=== PATIENT | male | born 1995 | race Caucasian/White ===

== ENCOUNTER → 2019-12-04 08:29 | Outpatient (REF) | payer OTHER, SELFPAY ==
--- NOTE | 2019-12-04 08:30 | CA_ITS ---
Transthoracic Echocardiogram Patient (Last, First, Middle): Molina Rubalcava, Gender: Male Date of : 1995 Age: 24 Procedure Date: 12/04/2019 Procedure Type: Transthoracic Echocardiogram Location: OP Height: 182.88 cm Weight: 81.65 kg BSA: 2.04 m2 Heart Rate: bpm BP: 120 / 78 mmHg Export Freight Clerk: JUSTIN Referring MD: Lionel Doll MD Symptoms: 145.10 RBB ( right bundle branch block) Conclusions: - Normal study. Findings Left Ventricle Normal left ventricular size, thickness, systolic function, and wall motion. The visually estimated ejection fraction is between 55-60%. Diastolic function is normal for age. Right Ventricle Normal right ventricular cavity size and systolic function. Atria Both atria are normal in size. There is no evidence of interatrial shunt by color Doppler. Aortic Valve Normal aortic valve structure and function. There is no aortic valve stenosis. There is no aortic valve regurgitation. Mitral Valve Normal mitral valve structure and function. There is no mitral valve regurgitation. There is no mitral valve stenosis. Pulmonic Valve Normal pulmonic valve structure and function. There is trace pulmonic valve regurgitation. Tricuspid Valve Normal tricuspid valve structure and function. There is trace tricuspid valve regurgitation. Normal right atrial pressure. There is no evidence of pulmonary hypertension. Great Vessels All visible segments of the aorta are normal in size. The visualized portions of the pulmonary artery and branches are normal. Venous The inferior vena cava is normal in size and collapses greater than 50% with inspiration. Pericardium/Pleural There is no evidence of pericardial effusion. Prior Study Comparison No change compared to prior study dated: 11/11/2018. Measurements 2D Linear Measurements IVSd: 0.91 0.6-0.9/0.6-1.0 cm LVIDd: 5.03 3.9-5.3/4.2-5.9 cm LVIDs: 3.40 2.0-3.6 cm LVPWd: 0.73 0.7-1.1 cm Ao Root: 2.70 2.1-3.5 cm LV Mass: 175.67 67-162/88-224 g LVOT Diam: 2.01 3.0+(-)1.3 cm Mitral Valve MV Pk E: 0.57 MV PK A: 0.37 MV Decel Time: 243.70 E/A: 1.55 E'Lateral: 0.15 E'Medial: 0.10 Decel [place]: 2.34 Aortic Valve AoV Pk Armen: 1.24 AoV Pk Grad: 6.11 LVOT LVOT Pk Armen: 0.95 LVOT Mn Armen: 0.61 LVOT VTI: 0.19 LVOT Pk Grad: 3.62 LVOT Mn Grad: 1.77 LVOT Diam: 2.01 LVOT Area: 3.19 Diastolic Function MV Pk E: 0.57 MV Pk A: 0.37 E/A: 1.55 E'Medial: 0.10 E' Laterial: 0.15 Tricuspid Valve TR Pk Armen: 2.35 TR Pk Grad: 22.09 RA Press: 3.00 RVSP: 25.00 Great Vessels Aorta Ao Root-2D: 2.70 2.0-3.7 cm Ao Asc: 2.56 2.1-3.4 cm Updated in Other Vendor System with Status of Final Jose Luis Kovacs MD electronically signed on 12/05/2019 11:50:08 AM with status of Final
== END ==
LOC: HO.CARD 08:29
PROVIDERS: PCP Nurse Practitioner Family; Visit Provider Internal Medicine
DX: I45.10 Unspecified right bundle-branch block (principal)
CPT/HCPCS: 93306

== ENCOUNTER → 2019-12-11 12:26 | Outpatient (BNVA) | payer OTHER, SELFPAY | PROVIDERS: PCP Nurse Practitioner Family; Referring Provider Nurse Practitioner Family; Visit Provider Internal Medicine | DX: I45.10 Unspecified right bundle-branch block (principal); R94.31 Abnormal electrocardiogram [ECG] [EKG] | CPT/HCPCS: 93005; 99214 ==

== ENCOUNTER → 2021-10-27 07:19 | Outpatient (REF) | payer OTHER, SELFPAY ==
--- NOTE | 2021-10-27 07:23 | CA_ITS ---
Transthoracic Echocardiogram Patient (Last, First, Middle): Molina Rubalcava, Gender: Male Date of : 1995 Age: 26 Procedure Date: 10/27/2021 Procedure Type: Transthoracic Echocardiogram Location: OP Height: 182.88 cm Weight: 79.38 kg BSA: 2.01 m2 Heart Rate: 57 bpm BP: 120 / 75 mmHg Carder Blankets: KYLIE Stevens MD: Lionel Doll MD Division Traffic Superintendent: Dimitri Robles MD Symptoms: R94.31 - Abnormal electrocardiogram [ECG] [EKG] Study Quality: Adequate ECG Rhythm: Bradycardia Conclusions: - Essentially normal study except for mild enlargement of right ventricle which could be due to off axis views Findings Left Ventricle Normal left ventricular size, thickness, and systolic function. The visually estimated ejection fraction is between 55-60%. Diastolic function is normal for age. Right Ventricle Mildly increased right ventricular cavity size. There is normal right ventricular systolic function. Atria Both atria are normal in size. Interatrial shunt cannot be excluded. Aortic Valve Normal aortic valve structure and function. There is no aortic valve stenosis. There is no aortic valve regurgitation. Mitral Valve Normal mitral valve structure and function. There is trace mitral valve regurgitation. There is no mitral valve stenosis. Pulmonic Valve The pulmonic valve is likely normal. There is trace pulmonic valve regurgitation. Tricuspid Valve Normal tricuspid valve structure. There is trace tricuspid valve regurgitation. The right ventricular systolic pressure is normal. The right ventricular systolic pressure is 26 mmHg. Normal right atrial pressure. There is no evidence of pulmonary hypertension. Great Vessels All visible segments of the aorta are normal in size. The pulmonary artery was not well visualized. Venous The inferior vena cava is normal in size and collapses greater than 50% with inspiration. Pericardium/Pleural There is no evidence of pericardial effusion. Prior Study Comparison No significant change compared to prior study dated: 12/04/2019. Measurements 2D Linear Measurements IVSd: 0.74 0.6-0.9/0.6-1.0 cm LVIDd: 5.30 3.9-5.3/4.2-5.9 cm LVIDd Index: 2.64 2.4-3.2/2.2-3.1 cm/m2 LVIDs: 3.82 2.0-3.6 cm LVPWd: 0.69 0.7-1.1 cm LA Diam: 3.30 2.7-3.8/3.0-4.0 cm LAIDs Index: 1.64 1.5-2.3 cm/m2 LV Mass: 161.62 67-162/88-224 g LV Mass Index: 80.41 43-95/49-115 g/m2 LVOT Diam: 2.00 3.0+(-)1.3 cm 2D Systolic Function EF 4C: 49.80 >55% EF 2C: 52.70 >55% Mitral Valve MV Pk E: 0.77 MV PK A: 0.64 MV Decel Time: 153.00 E/A: 1.20 E'Lateral: 16.50 E'Medial: 12.20 E/E' Med: 6.30 E/E' Lat: 4.60 PHT: 45.00 MVA PHT: 4.89 Decel [place]: 5.01 Aortic Valve AoV Pk Armen: 1.23 AoV Mn Armen: 0.87 AoV VTI: 0.27 AoV Pk Grad: 6.00 Aov Mn Grad: 3.00 MELINDA Cont.VTI: 2.51 LVOT LVOT Pk Armen: 1.01 LVOT Mn Armen: 0.72 LVOT VTI: 0.22 LVOT Pk Grad: 4.00 LVOT Mn Grad: 2.00 LVOT Diam: 2.00 LVOT Area: 3.14 Diastolic Function MV Pk E: 0.77 MV Pk A: 0.64 E/A: 1.20 E'Medial: 12.20 E/E' Med: 6.30 E' Laterial: 16.50 E/E' Lat: 4.60 Right Ventricle TAPSE (mm): 22.60 TVS' Armen: 11.40 Tricuspid Valve TR Pk Armen: 2.40 TR Pk Grad: 23.00 RA Press: 3.00 RVSP: 26.00 Great Vessels Aorta Sinus of Valsalva: 2.90 2.0-3.5 cm Ao Asc: 2.60 2.1-3.4 cm Pulmonary Valve PV Pk Armen: 0.86 Peak PV Grad: 3.00 Updated in Other Vendor System with Status of Final Dimitri Robles MD electronically signed on 10/27/2021 12:51:46 PM with status of Final
== END ==
LOC: HO.CARD 07:19
PROVIDERS: Visit Provider Internal Medicine
DX: I45.10 Unspecified right bundle-branch block (principal); R94.31 Abnormal electrocardiogram [ECG] [EKG]
CPT/HCPCS: 93306

== ENCOUNTER → 2021-12-01 08:41 | Outpatient (BNVA) | payer OTHER, SELFPAY | PROVIDERS: PCP Nurse Practitioner Family; Referring Provider Nurse Practitioner Family; Visit Provider Internal Medicine | DX: I45.10 Unspecified right bundle-branch block (principal); I51.7 Cardiomegaly | CPT/HCPCS: 93005; 99212 ==

== ENCOUNTER 2022-03-03 14:33 | Outpatient (REF) | payer OTHER, SELFPAY ==
[2022-03-03 16:02] LABS: Anion Gap 16 (12-20); Blood Urea Nitrogen 17 mg/dL (9-16); Carbon Dioxide 26 mmol/L (22-29); Chloride 101 mmol/L (96-108); Estimated Glomerular Filt Rate > 60; Glucose Random 76 mg/dL (60-115); Potassium 4.2 mmol/L (3.3-5.1); Sodium 139 mmol/L (135-145)
== END 2022-03-03 14:34 | disposition home or self-care (01) ==
LOC: HO.LAB 14:33
PROVIDERS: PCP Nurse Practitioner Family; Visit Provider Internal Medicine
DX: Z01.812 Encounter for preprocedural laboratory examination (principal)
CPT/HCPCS: 36415; 80048

== ENCOUNTER 2023-06-23 10:19 | Outpatient (AMB) | payer OTHER, SELFPAY ==
--- NOTE | 2023-06-23 10:33 | A.OFFPC_ITS ---
Vital Signs 06/23/23 10:37 Height 6 ft Weight 177 lb BMI 24.0 BP 110/80 Blood Pressure Location Rt brachial Position Sitting Pulse 68 Pulse Source Pulse Oximeter Pulse Oximetry (%) 100 Oxygen Delivery Method Room Air Intake Visit Reasons: Physical exam Intake Note: Patient here for physical exam. Allergies No Known Allergies [No Known Allergies*] Allergy (Verified 06/23/23 10:38) Medication List - Last Reconciled 06/23/23 by PATEL Chance sertraline 25 mg PO DAILY Tobacco use date assessed: 06/23/23 Dental Screening Dental Screen Date: 06/23/23 Did you have a dental visit in the last 12 months?: No Did you have a dental problem in the last 6 months where you did not have access to dental care?: No Was dental information given to patient?: Patient has dentist HPI Physical exam HPI Details Pt is here for a PE. Will order labs. [facility] Medical History Abnormal EKG Right bundle branch block Surgical History No pertinent past surgical history Family History Father No problems noted. Mother No problems noted. Social History Housing: House Patient Tobacco Use Status: Never used Tobacco e-Cigarette/Vaping Use: Never Used service: No Current occupational status: employed Cognitive needs: No Hearing needs: No Vision needs: Yes Questionnaire PHQ-9 Over the last 2 weeks, how often have you been bothered by any of the following problems? 1. Little interest or pleasure in doing things: not at all 2. Feeling down, depressed, or hopeless: not at all 3. Trouble falling or staying asleep, or sleeping too much: not at all 4. Feeling tired or having little energy: not at all 5. Poor appetite or overeating: not at all 6. Feeling bad about yourself - or that you are a failure or have let yourself or your family down: not at all 7. Trouble concentrating on things, such as reading the newspaper or watching television: not at all 8. Moving or speaking so slowly that other people could have noticed. Or the opposite - being so fidgety or restless that you have been moving around a lot more than usual: not at all 9. Thoughts that you would be better off or of hurting yourself in some way: not at all Total score: 0 Depression Screening Interpretation: Negative Depression Screening Done: Yes 08146 - PHQ-9 Billing: Yes Source: Developed by Drs. Jerrell Ramirez, Aracelis Sierra, Good Gipson and colleagues, with an educational brad from [employer]. Thrive Questionnaire Date Thrive assessed: 06/23/23 I am a: Patient What is your living situation today?: I have a steady place to live Within the past 12 months, did the food you bought not last and you didn't have the money to get more?: Never true Within the past 12 months, did you worry whether your food would run out before you got money to buy more?: Never true Do you have trouble paying for medicines?: No Do you have trouble getting transportation to medical appointments?: No Do you have trouble paying your heating and electricity bill?: No Do you have trouble taking care of your child, family member or friend?: No Do you have trouble with day-to-day activities such as bathing, preparing meals, shopping, managing finances, etc.?: No Are you currently unemployed and looking for a job?: No Are you interested in more education?: No Currently or been in a relationship where the following occur: I choose not to answer this question THRIVE Score: 0 AUDIT C Alcohol Use Questionnaire (AUDIT-C) 1. How often do you have a drink containing alcohol?: 2-3 times a week 2. How many drinks containing alcohol do you have on a typical day when you are drinking?: 1 or 2 3. How often do you have six or more drinks on one occasion?: Never Total Score: 3 Score Reviewed/Action Taken: No KERRY-7 AMB Questionnaire KERRY-7 Date KERRY - 7 assessed: 06/23/23 Feeling nervous, anxious, or on edge: 0 = Not at all Not being able to stop or control worryin = Not at all Worrying too much about different things: 0 = Not at all Trouble relaxin = Not at all Being so restless that it is hard to sit still: 0 = Not at all Becoming easily annoyed or irritable: 0 = Not at all Feeling afraid as if something awful might happen: 0 = Not at all Total KERRY-7 score (0-4 normal; 5-9 mild; 10-14 moderate; 15-21 severe): 0 Source: Developed by Drs. Jerrell Ramirez, Aracelis Sierra, Good Gipson and colleagues, with an educational brad from [employer]. KERRY-7 Assessment Billing KERRY-7 Assessment Tool: KERRY-7 Assessment 99613 Review of Systems Const Denies chills and Denies fever(s) Eyes Denies blurry vision ENT Denies vertigo, Denies dizziness and Denies sore throat Card Denies chest pain at rest, Denies chest pain with activity, Denies diaphoresis, Denies dyspnea and Denies dyspnea on exertion Resp Denies cough, Denies dyspnea, Denies dyspnea on exertion and Denies wheezing GI Denies abdominal pain, Denies melena, Denies hematochezia, Denies constipation, Denies diarrhea and Denies loose stools Denies hematuria Musc Denies numbness and Denies tingling Skin/Breast Denies lesions Neuro Denies vertigo, Denies dizziness, Denies numbness and Denies tingling Psych Denies anxiety, Denies depression, Denies homicidal ideation, Denies suicidal ideation and Denies other (substance abuse) Aller/Immun Denies wheezing Physical exam (Primary Care) Vital Signs: Last Vital Signs Pulse 68 06/23/23 10:37 BP 110/80 06/23/23 10:37 Pulse Ox 100 06/23/23 10:37 Oxygen Delivery Method Room Air 06/23/23 10:37 BMI result Body Mass Index 24.0 Tobacco/Smoking Status: Tobacco use Status Tobacco use date assessed 06/23/23 06/23/23 10:42 Patient Tobacco Use Status Never used Tobacco 06/23/23 10:34 e-Cigarette/Vaping Use Never Used 06/23/23 10:34 PHQ-9: PHQ-9 Score PHQ-9: Total score 0 06/23/23 10:52 Depression Screening Interpretation: Negative Thrive Assessment: Date of Thrive Assessment Date Thrive assessed 06/23/23 06/23/23 10:42 Currently or been in a relationship where the following occur: I choose not to answer this question Const General: cooperative Nutritional Appearance: well nourished Orientation/consciousness: patient oriented x3 HENMT Head: Yes normal to inspection, Yes normocephalic and Yes atraumatic Ears: TM's normal bilaterally Eyes General: appearance normal, both eyes and all related structures Alignment and Position: alignment normal and position normal Neck Neck: Yes normal visual inspection and Yes no lymphadenopathy Thyroid: Thyroid normal Resp Effort & Inspection: normal respiratory effort Auscultation: clear to auscultation bilaterally Cardio Rate: regular rate Rhythm: regular rhythm Heart sounds: S1 normal heart sound present, S2 normal heart sound present and no murmurs GI Palpation (GI): Soft to palpation and nontender Auscultation: normal bowel sounds Male General Exam: Yes normal external exam Penis: normal penis Scrotum: scrotum normal, testes descended bilaterally and no inguinal hernias Testes: no testicular mass Skin Rashes: no rashes Neuro General: patient oriented x3, moves all extremities, no focal motor deficits and deep tendon reflexes 2+ bilaterally Romberg Test: Negative Psych Appearance: grossly normal Mental Status: mental status grossly normal Speech and movement: Normal speech and movement present Affect: normal affect Attitude: cooperative Thought process: Normal thought process present Thought content: Normal thought content present Insight: Good insight present (Psych) Judgement: Good judgement present (Psych) Assessment and Plan Assessment & Plan (1) Physical exam: Code(s): Z00.00 - Encounter for general adult medical examination without abnormal findings Plan: Labs ordered Plan The patient agreed to the use of a biomedical engineering supervisor for this encounter. Scribed for PATEL Mortensen by Annabella Espinoza biomedical engineering supervisor, on 06/23/2023 at 10:50 EST. Orders: Orders Complete Blood Count Auto Diff Today Z00.00 - Encounter for general adult medical examination without abnormal findings Comprehensive [place]. Panel Fast Today Z00.00 - Encounter for general adult medical examination without abnormal findings TSH reflex Free T4 Today Z00.00 - Encounter for general adult medical examination without abnormal findings UA CC w/rflx Micro + Cult Today Z00.00 - Encounter for general adult medical examination without abnormal findings Lipid Panel Today Z00.00 - Encounter for general adult medical examination without abnormal findings Coding Level of Care Code Est Pt Prev Care 18-39y(78091) Diagnoses Physical exam Z00.00 Additional Codes KERRY-7 Assessment Billing - KERRY-7 Assessment Tool: KERRY-7 Assessment 26814 ([id number])
[2023-06-23 10:37] VITALS: BP 110/80; PULSE 68; O2SAT 100; BMI 24.0
== END 2023-06-23 11:31 | disposition home or self-care (01) ==
PROVIDERS: Visit Provider Nurse Practitioner Family
DX: Z00.00 Encounter for general adult medical examination without abnormal findings (principal)
CPT/HCPCS: 99395

== ENCOUNTER 2024-01-03 13:58 | Outpatient (AMB) | payer OTHER, SELFPAY ==
[2024-01-03 14:09] VITALS: BP 126/70; PULSE 72; BMI 24.5
--- NOTE | 2024-01-03 14:09 | A.OFFVIS_ITS ---
Vital Signs 01/03/24 14:09 Height 6 ft Weight 180 lb 12.465 oz BMI 24.5 BP 126/70 Blood Pressure Location Lt brachial Position Sitting Pulse 72 Pulse Source Monitor Intake Visit Reasons: 2 years followup w/ekg dx: rbbb Allergies No Known Allergies [No Known Allergies*] Allergy (Verified 06/23/23 10:38) Medication List - Last Reconciled 01/03/24 by Lionel Doll MD sertraline 25 mg PO DAILY HPI Comments Details: Molina returns for follow-up. To recall, in the past, he had an episode of chest pain that he noticed when he woke up one morning. Subsequently EKG had shown a right bundle-branch block pattern. This led to ER visit. Cardiac troponin was checked and was negative. Then he was monitored for a bit and discharged home. For further workup he underwent an echocardiogram as well as cardiac MR. Overall, he states he is doing very well. No further episodes of any chest pain or in fact anything cardiac sounding at all. Unlimited exercise tolerance with no limitations. No other medical concerns. No family history of any premature coronary disease or other conditions like cardiomyopathy. [facility] Medical History Abnormal EKG Right bundle branch block Surgical History No pertinent past surgical history Family History Father No problems noted. Mother No problems noted. Social History Housing: House Patient Tobacco Use Status: Never used Tobacco e-Cigarette/Vaping Use: Never Used service: No Current occupational status: employed Cognitive needs: No Hearing needs: No Vision needs: Yes Review of Systems Const Denies weakness ENT Denies dizziness Card Denies chest pain, Denies chest pain with activity, Denies syncope, Denies rapid heart rate, Denies pedal edema, Denies edema, Denies leg edema, Denies lightheadedness, Denies palpitations, Denies dyspnea, Denies dyspnea on exertion and Denies orthopnea Resp Denies cough, Denies dyspnea and Denies dyspnea on exertion GI Denies hematochezia and Denies change in stool character Musc Denies abnormal gait, Denies muscle cramps, Denies muscle weakness, Denies numbness, Denies radiating pain into limb and Denies tingling Neuro Denies abnormal gait, Denies dizziness, Denies syncope, Denies numbness, Denies tingling and Denies weakness Endo Denies palpitations Physical Exam Vital Signs: Last Vital Signs Pulse 72 01/03/24 14:09 BP 126/70 01/03/24 14:09 BMI result Body Mass Index 24.5 Const General: comfortable and no acute distress Orientation/consciousness: patient oriented x3 HEENT Other: Unremarkable Head: Yes normal to inspection Neck Neck: Yes normal visual inspection Chest Chest palpation & inspection: normal inspection of the chest Resp Auscultation: clear to auscultation bilaterally Cardio Palpation: normal PMI Heart sounds: S1 normal heart sound present, S2 normal heart sound present, no gallops, no murmurs and no rubs GI Palpation (GI): Soft to palpation Back/Spine/Pelvis Other: unremarkable Skin General skin exam: no rashes or lesions noted Neuro General: patient oriented x3 Extrem General: Yes normal to inspection Psych Mental Status: mental status grossly normal Office Procedures EKG Details: EKG with underlying sinus rhythm at 72/Min; rightward axis and no clear evidence of the previously noted right bundle-branch block[place]. [id number], Complete Assessment & Plan Assessment & Plan (1) Right bundle branch block: Code(s): I45.10 - Unspecified right bundle-branch block Category: Medical Plan In today's EKG, no clear evidence of the previously noted right bundle-branch block. In the recent echocardiogram, left ventricular size and function were unremarkable. LVEF 55-60%. With regard to right ventricle, thought to be possibly mildly enlarged but was not clear as the views were off axis. Valves are unremarkable. No evidence of pulmonary hypertension. In the cardiac MRI, LVEF 56%. RVEF 50% with normal wall motion. No significant valvular findings. No evidence of any myocardial infarction, infiltrative or hypertrophic cardiomyopathy. Overall, within normal limits. Essentially, intermittent right bundle-branch block but otherwise normal cardiac status. Okay to get periodic EKGs through his own PCP but no other cardiac workup required at this time unless any new symptoms or other concerns. Discussed about this with patient. If any issues, he will contact us. Coding Level of Care Code Est Pt Level 3 (41961) Diagnoses Right bundle branch block I45.10 CPT Codes EKG - CPT: 22822-[id number], Complete ([id number])
== END 2024-01-03 14:31 | disposition home or self-care (01) ==
PROVIDERS: PCP Nurse Practitioner Family; Visit Provider Internal Medicine
DX: I45.10 Unspecified right bundle-branch block (principal)
CPT/HCPCS: 93010; 99213

== ENCOUNTER → 2024-01-03 13:58 | Outpatient (BNVA) | payer OTHER, SELFPAY | PROVIDERS: PCP Nurse Practitioner Family; Visit Provider Internal Medicine | DX: I45.10 Unspecified right bundle-branch block (principal) | CPT/HCPCS: 93005 ==

== ENCOUNTER 2024-11-22 15:49 | Outpatient (AMB) | payer OTHER, SELFPAY ==
--- NOTE | 2024-11-22 16:09 | A.OFFPC_ITS ---
Vital Signs 11/22/24 16:10 11/22/24 16:48 Height 6 ft Weight 187 lb BMI 25.4 BP 130/88 122/80 Blood Pressure Location Rt brachial Lt brachial Position Sitting Sitting Respiration 16 Pulse 66 Pulse Source Pulse Oximeter Pulse Oximetry (%) 98 Oxygen Delivery Method Room Air Intake Visit Reasons: Annual PE Core Cleaner Required: No Accompanied by: Self / Same As Patient Allergies No Known Allergies (No Known Allergies*) Allergy (Verified 11/22/24 16:34) Medication List - Last Reconciled 11/22/24 by JOY ChanceP- sertraline 25 mg PO DAILY Tobacco use date assessed: 11/22/24 Dental Screening Dental Screen Date: 11/22/24 Did you have a dental visit in the last 12 months?: Yes Did you have a dental problem in the last 6 months where you did not have access to dental care?: No Was dental information given to patient?: Patient has dentist HPI Annual PE HPI Details History of Present Illness The patient is a 29-year-old male presenting for a physical examination. He denies experiencing any chest pain, dyspnea, abdominal pain, constipation, diarrhea, or changes in stool. Additionally, he denies any suicidal or homicidal ideation. The patient reports doing well overall and is now , expressing happiness in his current life situation. Health Maintenance Social History - Marital Status: and reports be ing happy Review of Systems - Cardiovascular: Denies chest pain - Respiratory: Denies dyspnea - Gastrointestinal: Denies abdominal margarita n, constipation, diarrhea, or changes in stool - Psychiatric: Denies suicidal or homici octavio ideation Physical Exam General: Cooperative, healthy appearing, comfortable, no acute distress and well developed Orientation: Patient oriented x3 Limitations: No limitations Head: Normal to inspection Ears: Hearing grossly normal bilaterally Nose: Normal external nose present Face and sinus: Normal facial exam Eyes: Appearance normal, both eyes and all related structures Neck: Normal visual inspection and Yes full ROM Respiratory: Normal respiratory effort and able to speak in complete sentences. Clear to auscultation bilaterally Cardiovascular: Regular rate and rhythm. Normal S1 and S2 GI: Normal to inspection. Soft to palpation and nontender : testicles without masses/lesions and no hernias appreciated Skin: No rashes or lesions noted Neuro: Patient oriented x3 Extremities: Normal to inspection Results Plan 1. physical exam Discussion Notes I discussed with the patient that the physical examination was benign and that we will conduct laboratory tests in the near future, for which he must fast with water. Patient Instructions - Fast with water before upcoming labora tory tests. [facility], [facility] Medical History Abnormal EKG Right bundle branch block Surgical History No pertinent past surgical history Family History Father No problems noted. Mother No problems noted. Social History Housing: House Patient Tobacco Use Status: Never used Tobacco e-Cigarette/Vaping Use: Never Used service: No Current occupational status: employed Cognitive needs: No Hearing needs: No Vision needs: Yes Questionnaire PHQ-9 Over the last 2 weeks, how often have you been bothered by any of the following problems? 1. Little interest or pleasure in doing things: not at all 2. Feeling down, depressed, or hopeless: not at all 3. Trouble falling or staying asleep, or sleeping too much: not at all 4. Feeling tired or having little energy: not at all 5. Poor appetite or overeating: not at all 6. Feeling bad about yourself - or that you are a failure or have let yourself or your family down: not at all 7. Trouble concentrating on things, such as reading the newspaper or watching television: not at all 8. Moving or speaking so slowly that other people could have noticed. Or the opposite - being so fidgety or restless that you have been moving around a lot more than usual: not at all 9. Thoughts that you would be better off or of hurting yourself in some way: not at all Total score: 0 Depression Screening Interpretation: Negative Depression Screening Done: Yes 30891 - PHQ-9 Billing: Yes Source: Developed by Drs. Jerrell Ramirez, Aracelis Sierra, Good Gipson and colleagues, with an educational brad from [employer]. Thrive Questionnaire Date Thrive assessed: 10/03/25 I am a: Patient What is your living situation today?: I have a steady place to live Within the past 12 months, did the food you bought not last and you didn't have the money to get more?: Never true Within the past 12 months, did you worry whether your food would run out before you got money to buy more?: Never true Do you have trouble paying for medicines?: No Do you have trouble getting transportation to medical appointments?: No Do you have trouble paying your heating and electricity bill?: No Do you have trouble taking care of your child, family member or friend?: No Do you have trouble with day-to-day activities such as bathing, preparing meals, shopping, managing finances, etc.?: No Are you currently unemployed and looking for a job?: No Are you interested in more education?: No Please select the resources that you would like help with: None Currently or been in a relationship where the following occur: No concerns reported THRIVE Score: 0 AUDIT C Alcohol Use Questionnaire (AUDIT-C) 1. How often do you have a drink containing alcohol?: 2-3 times a week 2. How many drinks containing alcohol do you have on a typical day when you are drinking?: 3 or 4 3. How often do you have six or more drinks on one occasion?: Monthly Total Score: 6 Score Reviewed/Action Taken: Yes KERRY-7 AMB Questionnaire KERRY-7 Date KERRY - 7 assessed: 11/22/24 Feeling nervous, anxious, or on edge: 0 = Not at all Not being able to stop or control worryin = Not at all Worrying too much about different things: 0 = Not at all Trouble relaxin = Not at all Being so restless that it is hard to sit still: 0 = Not at all Becoming easily annoyed or irritable: 0 = Not at all Feeling afraid as if something awful might happen: 0 = Not at all Total KERRY-7 score (0-4 normal; 5-9 mild; 10-14 moderate; 15-21 severe): 0 Source: Developed by Drs. Jerrell Ramirez, Aracelis Sierra, Good Gipson and colleagues, with an educational brad from [employer]. KERRY-7 Assessment Billing KERRY-7 Assessment Tool: KERRY-7 Assessment 22825 Physical exam (Primary Care) Vital Signs: Last Vital Signs Pulse 66 11/22/24 16:10 Resp 16 11/22/24 16:10 BP 130/88 11/22/24 16:10 Pulse Ox 98 11/22/24 16:10 Oxygen Delivery Method Room Air 11/22/24 16:10 BMI result Body Mass Index 25.4 Tobacco/Smoking Status: Tobacco use Status Tobacco use date assessed 11/22/24 11/22/24 16:15 Patient Tobacco Use Status Never used Tobacco 11/22/24 16:15 e-Cigarette/Vaping Use Never Used 11/22/24 16:15 PHQ-9: PHQ-9 Score PHQ-9: Total score 0 11/22/24 16:41 Depression Screening Interpretation: Negative Thrive Assessment: Date of Thrive Assessment Date Thrive assessed 11/17/24 11/22/24 16:15 Currently or been in a relationship where the following occur: No concerns reported Coding Level of Care Code Est Pt Prev Care 18-39y(12414) Diagnoses Physical exam Z00. Additional Codes KERRY-7 Assessment Billing - KERRY-7 Assessment Tool: KERRY-7 Assessment 77247 ([id number]) PHQ-9 - 38681 - PHQ-9 Billing: Yes ([id number]) Assessment & Plan Assessment & Plan (1) Physical exam: Code(s): Z00.00 - Encounter for general adult medical examination without abnormal findings Category: Medical Plan . Orders: Orders Complete Blood Count Auto Diff Today Z00.00 - Encounter for general adult medical examination without abnormal findings Comprehensive [place]. Panel Fast Today Z00.00 - Encounter for general adult medical examination without abnormal findings Lipid Panel Today Z00.00 - Encounter for general adult medical examination without abnormal findings TSH reflex Free T4 Today Z00.00 - Encounter for general adult medical examination without abnormal findings UA CC w/rflx Micro + Cult Today Z00.00 - Encounter for general adult medical examination without abnormal findings
[2024-11-22 16:10] VITALS: BP 130/88; PULSE 66; RESP 16; O2SAT 98; BMI 25.4
[2024-11-22 16:48] VITALS: BP 122/80
== END 2024-11-22 17:09 | disposition home or self-care (01) ==
LOC: HO.HMCC 15:49
PROVIDERS: PCP Nurse Practitioner Family; Visit Provider Nurse Practitioner Family
DX: Z00.00 Encounter for general adult medical examination without abnormal findings (principal)

== ENCOUNTER → 2024-11-22 15:49 | Outpatient (BNVA) | payer OTHER, SELFPAY | PROVIDERS: PCP Nurse Practitioner Family; Visit Provider Nurse Practitioner Family | DX: Z00.00 Encounter for general adult medical examination without abnormal findings (principal) | CPT/HCPCS: 96127 ==